=== PATIENT | male | born 1980 | race Caucasian/White ===

== ENCOUNTER 2017-07-08 16:51 | Emergency (ER) | payer BC, OTHER ==
[2017-07-08] MEDS ORDERED: Lisinopril 5 MG TAB ONE (17:11)
[2017-07-08] MEDS ORDERED: Thiamine HCl 200 MG/2 ML VIAL ONE (17:31)
[2017-07-08 17:34] LABS: #Basophils 0.2 thou/uL (0.0-0.2); #Eosinphils 0.4 thou/uL (0.0-0.7); #Lymphocytes 1.5 thou/uL (1.20-3.40); #Monocytes 0.9 thou/uL (0.11-0.59); #Neutrophils 6.2 thou/uL (1.40-6.50); %Basophils 1.7 % (0.0-1.0); %Eosinophils 4.2 % (0.0-10.0); %Lymphocytes 16.5 % (21.0-51.0); %Monocytes 10.1 % (0.0-10.0); %Neutrophils 67.4 % (42.0-75.0); Hemoglobin 17.6 g/dL (14.0-18.0); Mean Corpuscular HGB CONC 35.7 g/dL (32.0-36.0); Mean Corpuscular Hemoglobin 32.9 pg (27.0-31.0); Mean Corpuscular Volume 92.1 fl (80.0-94.0); Mean Platelet Volume 11.7 fL (7.4-10.4); Platelet Count 195 thou/uL (130-400); Red Blood Cell (RBC) Count 5.37 mill/uL (4.70-6.10); White Blood Cell (WBC) Count 9.1 thou/uL (4.8-10.8)
[2017-07-08 17:49] LABS: ALT (SGPT) 115 U/L (8-55); AST (SGOT) 31 U/L (5-34); Albumin 4.7 g/dL (3.5-5.0); Alkaline Phosphatase 102 U/L (40-150); Anion Gap 19 mmol/L (10-20); BUN (Urea Nitrogen) 16 mg/dL (8.9-20.6); Bilirubin, Total 0.3 mg/dL (0.2-1.2); Calc. Creatinine Clearance 0 mL/min (70-130); Calcium 11.1 mg/dL (7.8-10.44); Carbon Dioxide 24 mmol/L (22-29); Chloride 99 mmol/L (98-107); Estimated GFR-MDRD 89; Globulin 4.9 g/dL (2.4-3.5); Glucose 170 mg/dL (70-105); Lipase 47 U/L (8-78); Potassium 4.6 mmol/L (3.5-5.1); Protein, Total 9.6 g/dL (6.0-8.3); Sodium 137 mmol/L (136-145)
[2017-07-08 17:51] LABS: CKMB 1.9 ng/mL (0-6.6); Troponin I 0.016 ng/mL (< 0.028)
--- NOTE | 2017-07-08 23:56 | RAD ---
PORTABLE CHEST: Date: 07-08-17 An AP portable film at 1701 shows a normal sized heart and clear lungs. No infiltrate, effusion or c ongestive change was present. The trachea is midline. There are no prior films available for compari son. IMPRESSION: No acute thoracic finding. POS: HOME
== END 2017-07-08 18:18 | disposition home or self-care (01) ==
LOC: BURERS 16:51
DX: I10 Essential (primary) hypertension (principal); F10.10 Alcohol abuse, uncomplicated; F17.220 Nicotine dependence, chewing tobacco, uncomplicated; R06.4 Hyperventilation
CPT/HCPCS: 71010; 80053; 82553; 83690; 84443; 84484; 85025; 85379; 93005; 94760; 96374; J3411

== ENCOUNTER 2018-02-27 23:19 | Emergency (ER) | payer OTHER | END 2018-02-27 23:52 | disposition home or self-care (01) | LOC: BURERS 23:19 | DX: I10 Essential (primary) hypertension (principal); F17.220 Nicotine dependence, chewing tobacco, uncomplicated; Z79.899 Other long term (current) drug therapy | CPT/HCPCS: 99283 ==